=== PATIENT | female | born 1995 | race Caucasian/White ===

== ENCOUNTER 2017-06-14 07:14 | Emergency (ER) | payer SELFPAY ==
[2017-06-14 08:08] LABS: Urine Drugs of Abuse Note Disclamer
[2017-06-14 08:22] LABS: Bacteria,Urine 1+ /HPF (Negative); Bilirubin,Urine NEG (Negative); Blood,Urine NEG (Negative); Ketones,Urine NEG (Negative); Leukocyte Esterase,Urine NEG (Negative); Nitrite,Urine NEG (Negative); Protein,Urine <15 mg/dL mg/dL (Negative); Urobilinogen,Urine < 2.0 mg/dL (<2.0)
[2017-06-14 08:41] LABS: Anion Gap 18 mmol/L; BUN/Creatinine Ratio 14; Blood Urea Nitrogen 7 mg/dL (7-17); Calcium 8.8 mg/dL (8.4-10.2); Carbon Dioxide 24 mmol/L (22-30); Chloride 105.2 mmol/L (98-107); Glucose 108 mg/dL (65-100); Potassium 4.1 mmol/L (3.6-5.0); Sodium 143 mmol/L (137-145)
[2017-06-14 08:45] LABS: Eosinophils % (Auto) 0.1 % (0.0-4.3); Hematocrit 43.7 % (30.3-42.9); Hemoglobin 15.2 gm/dl (10.1-14.3); Mean Corpuscular HGB Conc 35 % (30-34); Mean Corpuscular Hemoglobin 31 pg (28-32); Mean Corpuscular Volume 89 fl (79-97); Platelet Count 228 K/mm3 (140-440); Red Blood Count 4.91 M/mm3 (3.65-5.03); Red Cell Distribution Width 13.5 % (13.2-15.2); White Blood Count 6.9 K/mm3 (4.5-11.0)
--- NOTE | 2017-06-14 08:59 | Cat Scan Report ---
FINAL REPORT EXAM: CT CERVICAL SPINE WO CON HISTORY: Alcohol Intoxication TECHNIQUE: CT imaging is acquired through the cervical spine without contrast. Transaxial, coronal and sagittal reformations are provided. PRIORS: None. FINDINGS: The cervical spine is intact. Vertebral body heights are preserved. No acute fracture or listhesis. Atlanto-dens interval and odontoid process are intact. Intervertebral disc spaces are preserved. No perivertebral soft tissue swelling or hematoma identified. Limited soft tissue exam of the visualized neck is unremarkable. IMPRESSION: No acute cervical spine fracture identified. Correlate with physical exam and follow up as warranted.
--- NOTE | 2017-06-14 09:00 | Cat Scan Report ---
FINAL REPORT EXAM: CT HEAD/BRAIN WO CON HISTORY: Alcohol Intoxication TECHNIQUE: CT imaging acquired through the head without intravenous contrast. Transaxial reformations are provided. PRIORS: None. FINDINGS: Streak artifact from left earring. The ventricles, cisterns and sulci are normal. No intraparenchymal or extra-axial mass, hemorrhage, or mass effect. Sutherland and white-matter differentiation is normal. Normal spherical shape of the globes. Paranasal sinuses and mastoid air cells are clear. No skull or facial fracture visualized. IMPRESSION: No acute intracranial abnormality.
--- NOTE | 2017-06-14 09:36 | Emergency Department Report ---
HPI - General Chief Complaint: Alcohol Time Seen by Provider: 06/14/17 09:24 - HPI HPI: Room 10 The patient is a 21-year-old female presenting with a chief complaint of intoxication. Patient reportedly was at a constitution party last night consuming alcohol. EMS reports the patient flagged down a motorist this morning stating that she cannot find her cell phone or family members. Motorist contacted EMS who transported the patient to the ED. Patient appears intoxicated and does not answer questions Location: Mental state Duration: [See above] Quality: Altered mental state Severity: Moderate Modifying factors: [see above] Context: [see above] Mode of transportation: [not driving] ED Past Medical Hx - Past Medical History Previous Medical History?: No - Surgical History Past Surgical History?: No - Family History Family history: no significant - Social History Smoking Status: Current Every Day Smoker Substance Use Type: Alcohol ED Review of Systems ROS: Stated complaint: ETOH Other details as noted in HPI Comment: Unobtainable due to pts medical conditions Physical Exam - Physical Exam Vital Signs: Vital Signs 06/14/17 06/14/17 07:30 08:55 Temperature 97.9 F Pulse Rate 88 74 Respiratory 16 16 Rate Blood Pressure 103/63 Blood Pressure 106/74 [Right] O2 Sat by Pulse 100 100 Oximetry Physical Exam: GENERAL: The patient is well-developed well-nourished female sleeping on stretcher not appearing to be in acute distress. [] HEENT: Normocephalic. Pupils 5 mm to 3 mm bilaterally. Patient has moist mucous membranes. NECK: Trachea midline CHEST/LUNGS: Clear to auscultation. There is no respiratory distress noted. HEART/CARDIOVASCULAR: Regular. There is no tachycardia. There is no gallop rub or murmur. ABDOMEN: Abdomen is soft, nontender. Patient has normal bowel sounds. There is no abdominal distention. SKIN: There is no rash. There is no edema. There is no diaphoresis. NEURO: The patient is asleep and only localizes to sternal rub but does not answer questions MUSCULOSKELETAL: There is no evidence of acute injury. ED Course Vital Signs 06/14/17 06/14/17 07:30 08:55 Temperature 97.9 F Pulse Rate 88 74 Respiratory 16 16 Rate Blood Pressure 103/63 Blood Pressure 106/74 [Right] O2 Sat by Pulse 100 100 Oximetry - Reevaluation(s) Reevaluation #1: 11/19/17 12:10 Patient arousable and answers questions appropriate. Patient states she remembers consuming alcohol last night but does not remember what happened after that. Patient states she otherwise feels fine ED Medical Decision Making - Lab Data Result diagrams: 06/14/17 07:57 06/14/17 07:57 Laboratory Tests 06/14/17 06/14/17 06/14/17 07:57 07:57 07:57 WBC 6.9 RBC 4.91 Hgb 15.2 H Hct 43.7 H MCV 89 MCH 31 MCHC 35 H RDW 13.5 Plt Count 228 Lymph % (Auto) 22.2 Weld % (Auto) 3.3 Eos % (Auto) 0.1 Baso % (Auto) 1.0 Lymph # 1.5 Weld # 0.2 Eos # 0.0 Baso # 0.1 Seg Neutrophils % 73.4 H Seg Neutrophils # 5.0 Sodium 143 Potassium 4.1 Chloride 105.2 Carbon Dioxide 24 Anion Gap 18 BUN 7 Creatinine 0.5 L Estimated GFR > 60 BUN/Creatinine Ratio 14 Glucose 108 H Calcium 8.8 Urine Color Urine Turbidity Urine pH Ur Specific [place] Urine Protein Urine Glucose (UA) Urine Ketones Urine Blood Urine Nitrite Urine Bilirubin Urine Urobilinogen Ur Leukocyte Esterase Urine WBC (Auto) Urine RBC (Auto) U Epithel Cells (Auto) Urine Bacteria (Auto) Urine HCG, Qual Urine Opiates Screen Urine Methadone Screen Ur Barbiturates Screen Ur Phencyclidine Scrn Ur Amphetamines Screen U Benzodiazepines Scrn Urine Cocaine Screen U Marijuana (THC) Screen Drugs of Abuse Note Plasma/Serum Alcohol 0.24 H 06/14/17 06/14/17 08:04 08:04 WBC RBC Hgb Hct MCV MCH MCHC RDW Plt Count Lymph % (Auto) Weld % (Auto) Eos % (Auto) Baso % (Auto) Lymph # Weld # Eos # Baso # Seg Neutrophils % Seg Neutrophils # Sodium Potassium Chloride Carbon Dioxide Anion Gap BUN Creatinine Estimated GFR BUN/Creatinine Ratio Glucose Calcium Urine Color Straw Urine Turbidity Clear Urine pH 6.0 Ur Specific [place] 1.004 Urine Protein <15 mg/dl Urine Glucose (UA) Neg Urine Ketones Neg Urine Blood Neg Urine Nitrite Neg Urine Bilirubin Neg Urine Urobilinogen < 2.0 Ur Leukocyte Esterase Neg Urine WBC (Auto) 1.0 Urine RBC (Auto) 1.0 U Epithel Cells (Auto) 1.0 Urine Bacteria (Auto) 1+ Urine HCG, Qual Negative Urine Opiates Screen Presumptive negative Urine Methadone Screen Presumptive negative Ur Barbiturates Screen Presumptive negative Ur Phencyclidine Scrn Presumptive negative Ur Amphetamines Screen Presumptive negative U Benzodiazepines Scrn Presumptive negative Urine Cocaine Screen Presumptive negative U Marijuana (THC) Screen Presumptive negative Drugs of Abuse Note Disclamer Plasma/Serum Alcohol - Radiology Data Radiology results: report reviewed (CT head, CT cervical spine), image reviewed (CT head, CT cervical spine) FINAL REPORT EXAM: CT HEAD/BRAIN WO CON HISTORY: Alcohol Intoxication TECHNIQUE: CT imaging acquired through the head without intravenous contrast. Transaxial reformations are provided. PRIORS: None. FINDINGS: Streak artifact from left earring. The ventricles, cisterns and sulci are normal. No intraparenchymal or extra-axial mass, hemorrhage, or mass effect. Sutherland and white-matter differentiation is normal. Normal spherical shape of the globes. Paranasal sinuses and mastoid air cells are clear. No skull or facial fracture visualized. IMPRESSION: No acute intracranial abnormality. Transcribed By: SOTO Dictated By: FELISHA HARLEY MD Electronically Authenticated By: FELISHA HARLEY MD Signed Date/Time: 06/14/17457 DD/ 7 TD/TT: 06/14/17457 FINAL REPORT EXAM: CT CERVICAL SPINE WO CON HISTORY: Alcohol Intoxication TECHNIQUE: CT imaging is acquired through the cervical spine without contrast. Transaxial, coronal and sagittal reformations are provided. PRIORS: None. FINDINGS: The cervical spine is intact. Vertebral body heights are preserved. No acute fracture or listhesis. Atlanto-dens interval and odontoid process are intact. Intervertebral disc spaces are preserved. No perivertebral soft tissue swelling or hematoma identified. Limited soft tissue exam of the visualized neck is unremarkable. IMPRESSION: No acute cervical spine fracture identified. Correlate with physical exam and follow up as warranted. Transcribed By: SOTO Dictated By: FELISHA HARLEY MD Electronically Authenticated By: FELISHA HARLEY MD Signed Date/Time: 06/14/17455 DD/ 5 TD/TT: 06/14/17455 - Differential Diagnosis alcohol intoxication, ICH, substance abuse, electrolyte abnormality Critical care attestation.: If time is entered above; I have spent that time in minutes in the direct care of this critically ill patient, excluding procedure time. ED Disposition Clinical Impression: Alcohol intoxication Disposition: [id number] OP ADMIT IP TO THIS HOSP Is pt being admited?: No Does the pt Need Aspirin: No Condition: Stable Instructions: Alcohol Intoxication (ED), Abuse of Alcohol (ED), At-Risk Alcohol Use (ED) Additional Instructions: Return to the emergency department immediately should you develop worsening symptoms, fever, inability to tolerate food or liquid or any other concerns. Time of Disposition: 12:36 (patient discharged to family)
[2017-06-14] MEDS ORDERED: VITAMIN B-1 100 MG, FOLVITE 1 MG, INFUVITE 10 ML, MAGNESIUM SULFATE 2 GM in NACL 0.9% 1... IV ONE (09:52)
[2017-06-14 13:00] VITALS: BP 103/58
== END 2017-06-14 13:05 | disposition admitted as inpatient to this hospital (09) ==
LOC: ED 07:14
DX: F10.129 Alcohol abuse with intoxication, unspecified (principal); F17.200 Nicotine dependence, unspecified, uncomplicated
CPT/HCPCS: 36415; 70450; 72125; 80048; 80307; 81001; 81025; 85025; 96365; 96366; 99284; G0480; J3411; J3475; J7030; 80320